=== PATIENT | female | born 1995 | race Caucasian/White ===

== ENCOUNTER 2018-04-18 20:21 | Observation (INO) | payer OTHER ==
[~2018-04-18 20:21] MED LIST: ISOVUE-370 76%-LOCM 1 ML ONE
[2018-04-18 20:42] LABS: #Basophils 0.1 thou/uL (0.0-0.2); #Eosinphils 0.2 thou/uL (0.0-0.7); #Lymphocytes 2.5 thou/uL (1.20-3.40); #Monocytes 0.4 thou/uL (0.11-0.59); #Neutrophils 5.7 thou/uL (1.40-6.50); %Basophils 0.7 % (0.0-1.0); %Eosinophils 1.8 % (0.0-10.0); %Lymphocytes 28.4 % (28.0-48.0); %Monocytes 4.9 % (0.0-4.0); %Neutrophils 64.1 % (31.0-61.0); Hemoglobin 14.4 g/dL (12.0-16.0); Mean Corpuscular HGB CONC 34.4 g/dL (32.0-36.0); Mean Corpuscular Hemoglobin 32.8 pg (25.0-35.0); Mean Corpuscular Volume 95.3 fL (78.0-98.0); Mean Platelet Volume 7.5 fL (7.4-10.4); Platelet Count 255 thou/uL (130-400); RBC Distribution Width 11.5 % (11.5-14.5); Red Blood Cell (RBC) Count 4.39 mill/uL (4.00-5.20); White Blood Cell (WBC) Count 8.9 thou/uL (4.8-10.8)
[2018-04-18 20:49] LABS: BHCG - Serum Negative (NEGATIVE); Pregs Control Background? CLEAR/WHITE (CLR/WHITE); Pregs Control Bar Appear? YES (CONTROL BAR)
[2018-04-18 21:03] LABS: ALT (SGPT) 20 U/L (8-55); AST (SGOT) 28 U/L (5-34); Albumin 4.8 g/dL (3.5-5.0); Alcohol Less than 10 mg/dL (Less than 10); Alkaline Phosphatase 83 U/L (40-150); Anion Gap 14 mmol/L (10-20); BUN (Urea Nitrogen) 11 mg/dL (7.0-18.7); Bilirubin, Total 0.9 mg/dL (0.2-1.2); Calc. Creatinine Clearance 0 mL/min (70-130); Calcium 9.7 mg/dL (7.8-10.44); Carbon Dioxide 24 mmol/L (22-29); Chloride 102 mmol/L (98-107); Estimated GFR-MDRD 85; Globulin 3.3 g/dL (2.4-3.5); Glucose 107 mg/dL (70-105); Lipase 38 U/L (8-78); Potassium 3.1 mmol/L (3.5-5.1); Protein, Total 8.1 g/dL (6.0-8.3); Sodium 137 mmol/L (136-145)
[2018-04-18] MEDS ORDERED: Adacel (T-DAP) 0.5 ML VIAL ONE (21:12)
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
[2018-04-18 21:55] LABS: Bilirubin Negative (Negative); Blood, Urine Moderate (Negative); Clarity CLEAR (Clear); Glucose, Urine (Dipstick) Negative (Negative); Leukocyte Moderate (Negative); Nitrite Negative (Negative); Protein, Urine (Dipstick) Trace mg/dL (Neg-Trace); pH, Urine 5.5 (5.0-9.0)
[2018-04-18 21:57] LABS: Bacteria/HPF None Seen HPF (None Seen); Hyaline Casts/LPF 0-3 HYALINE CAST LPF (0-3 Hyaline); Pathc Cast-AUWi Flag 0.58 (0-2.49); Specific Gravity, Urine 1.045 (1.002-1.036)
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
[2018-04-18] MEDS ORDERED: Ketorolac Tromethamine 30 MG/ML VIAL ONE (22:29)
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
[2018-04-18] MEDS ORDERED: Ondansetron HCl/PF 4 MG/2 ML Vial IVP PRN (23:09)
[2018-04-18] MEDS ORDERED: Dextrose 5% in Water 1,000 ML IV PRN (23:09)
[2018-04-18] MEDS ORDERED: Ondansetron ODT 4 MG TAB PO PRN (23:09)
[2018-04-18] MEDS ORDERED: Cyclobenzaprine 10 MG TAB PO PRN (23:09)
[2018-04-18] MEDS ORDERED: Dextrose 50% Abboject 50 ML SYRINGE SLOW IVP PRN (23:09)
[2018-04-18] MEDS ORDERED: Ibuprofen 600 MG TAB PO PRN (23:09)
[2018-04-18] MEDS ORDERED: traMADol HCl 50 MG TAB PO PRN (23:09)
[2018-04-18] MEDS ORDERED: Sodium Chloride 0.9% 1,000 ML IV SCH (23:45)
[2018-04-18] MEDS: Acetaminophen 500 MG TAB PO SCH (23:57)
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
[2018-04-19 01:04] LABS: Bilirubin Negative (Negative); Blood, Urine Trace (Negative); Clarity CLEAR (Clear); Glucose, Urine (Dipstick) Negative (Negative); Leukocyte Moderate (Negative); Nitrite Negative (Negative); Protein, Urine (Dipstick) Negative (Neg-Trace); Specific Gravity, Urine 1.011 (1.002-1.036); Urobilinogen 0.2 mg/dL (0.2-1.0)
[2018-04-19 01:19] LABS: RBC/HPF 0-3 HPF (0-3); Squamous Epithelial 0-3 HPF (0-3)
[2018-04-19 01:20] LABS: Bacteria/HPF None Seen HPF (None Seen); Hyaline Casts/LPF NONE SEEN LPF (0-3 Hyaline)
[2018-04-19 01:40] VITALS: BMI 25.2
[2018-04-19] MEDS: Acetaminophen 500 MG TAB PO SCH ×2 (05:10→11:39)
[2018-04-19] MEDS ORDERED: Sulfameth/Trimethoprim DS 800-160mg TAB PO SCH (09:00)
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
--- NOTE | 2018-04-19 09:55 | RAD ---
FRONTAL VIEW CHEST: INDICATION: Pulmonary contusion, followup. COMPARISON: Reference is made to prior CT exam from the previous day. FINDINGS: There is a subtle retrocardiac left lower lung zone opacity. Right lung is clear. No discrete pneum othorax. Cardiac silhouette is accentuated by portable technique. IMPRESSION: Patchy left retrocardiac opacity at the left lung base. Recommend continued followup. POS: [facility]
[2018-04-19 12:16] VITALS: BP 101/63; TEMP 98.2
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
== END 2018-04-19 13:35 | disposition home or self-care (01) ==
LOC: ERS 20:21 → SURG B 23:33
PROVIDERS: ADMIT Surgery; ATTEND Surgery
DX: M79.662 Pain in left lower leg (principal); S27.329A Contusion of lung, unspecified, initial encounter; S80.02XA Contusion of left knee, initial encounter; S01.81XA Laceration without foreign body of other part of head, initial encounter; S06.0X9A Concussion with loss of consciousness of unspecified duration, initial encounter; V89.2XXA Person injured in unspecified motor-vehicle accident, traffic, initial encounter
CPT/HCPCS: 70450; 71045; 71260; 72125; 74177; 80053; 80307; 81003; 81015; 83690; 84703; 85025; 90471; 90715; 93005; 96361; 96374; G0378; G0390; J1885